=== PATIENT | male | born 1990 | race Caucasian/White ===

== ENCOUNTER 2017-03-28 22:46 | Emergency (ER) | payer OTHER ==
[2017-03-29] MEDS ORDERED: Ibuprofen TAB* 800 MG PO ONE (01:42)
[2017-03-29 02:00] LABS: Urine Appearance Clear; Urine Blood Negative (Negative); Urine Color Yellow; Urine Ketones Negative (Negative); Urine Protein Negative (Negative); Urine Specific Gravity 1.024 (1.010-1.030); Urine Urobilinogen Negative (Negative)
--- NOTE | 2017-03-29 02:18 | ED ---
Jailyn Mcclellan Gabriel, scribed for Madelyn Anaya MD on 03/29/17 at 0137 . GI/ HPI - HPI Summary HPI Summary: This patient is a 27 year old M presenting to [facility] with a chief complaint of left testicular pain that began 24 hours ago that has increased in the last 2 hours. The patient rates the pain 5/10 in severity. Patient denies injury. - History of Current Complaint Chief Complaint: EDUrogenitalProblems Time Seen by Provider: 03/29/17 01:30 Stated Complaint: TESTICULAR PAIN Hx Obtained From: Patient Onset/Duration: Started Days Ago - 1, Still Present Timing: Constant Severity: Moderate Current Severity: Moderate Pain Intensity: 5 Associated Signs and Symptoms: Positive: Negative - trauma - Allergy/Home Medications Allergies/Adverse Reactions: Allergies Allergy/AdvReac Type Severity Reaction Status Date / Time No Known Allergies Allergy Verified 03/28/17 23:02 PMH/Surg Hx/FS Hx/Imm Hx Previously Healthy: Yes Endocrine/Hematology History: Denies: Hx Anticoagulant Therapy, Hx Blood Disorders, Hx Blood Transfusions Cardiovascular History: Denies: Hx Aneurysm, Hx Angina, Hx Atrial Fibrillation Respiratory History: Denies: Hx Chronic Bronchitis, Hx Chronic Obstructive Pulmonary Disease (COPD ) GI History: Denies: Hx Cirrhosis, Hx Crohn's Disease, Hx Diverticulosis History: Denies: Hx Acute Renal Failure, Hx Benign Prostatic Hyperplasia Infectious Disease History: No Infectious Disease History: Denies: Traveled Outside the [place] in Last 30 Days - Family History Known Family History: Negative: Renal Disease, Respiratory Disease, Seizure Disorder - Social History Alcohol Use: Occasionally Hx Substance Use: No Substance Use Type: Reports: None Hx Tobacco Use: No Smoking Status (MU): Never Smoked Tobacco Review of Systems Constitutional: Negative - trauma Negative: Fever Positive: other - testicular pain All Other Systems Reviewed And Are Negative: Yes Physical Exam - Summary Physical Exam Summary: VITAL SIGNS: Reviewed. GENERAL: Patient is a well-developed and nourished malewho is lying comfortable in the stretcher. Patient is not in any acute respiratory distress. HEAD AND FACE: No signs of trauma. No ecchymosis, hematomas or skull depressions. No sinus tenderness. EYES: PERRLA, EOMI x 2, No injected conjunctiva, no nystagmus. EARS: Hearing grossly intact. Ear canals and tympanic membranes are within normal limits. MOUTH: Oropharynx within normal limits. NECK: Supple, trachea is midline, no adenopathy, no JVD, no carotid bruit, no c- spine tenderness, neck with full ROM. CHEST: Symmetric, no tenderness at palpation LUNGS: Clear to auscultation bilaterally. No wheezing or crackles. CVS: Regular rate and rhythm, S1 and S2 present, no murmurs or gallops appreciated. ABDOMEN: Soft, non-tender. No signs of distention. No rebound no guarding, and no masses palpated. Bowel sounds are normal. EXTREMITIES: FROM in all major joints, no edema, no cyanosis or clubbing. NEURO: Alert and oriented x 3. No acute neurological deficits. Speech is normal and follows commands. SKIN: Dry and warm : Mild tenderness in left testicle, no swelling, cremaster relax normal on both sides Triage Information Reviewed: Yes Vital Signs On Initial Exam: Initial Vitals Temp Pulse Resp BP Pulse Ox 98.8 F 91 16 144/100 98 03/28/17 22:55 03/28/17 22:55 03/28/17 22:55 03/28/17 22:55 03/28/17 22:55 Vital Signs Reviewed: Yes Diagnostics - Vital Signs Vital Signs Temp Pulse Resp BP Pulse Ox 03/29/17 01:15 98.3 F 72 16 120/77 98 03/28/17 22:55 98.8 F 91 16 144/100 98 - Laboratory Lab Statement: Any lab studies that have been ordered have been reviewed, and results considered in the medical decision making process. - Additional Comments Diagnostic Additional Comments: US testicular reveals no acute process. ED physician has reviewed this report. GIGU Course/Dx - Course Assessment/Plan: This patient is a 27 year old M presenting to [facility] with a chief complaint of left testicular pain that began 24 hours ago that has increased in the last 2 hours. The patient rates the pain 5/10 in severity. Patient denies injury. US testicular reveals no acute process. Test results with no significant abnormalities. UA obtained. In the ED course the patient was given motrin. Patient will be discharged and follow up from PCP. The patient is agreeable with this plan. - Diagnoses Provider Diagnoses: Testicular pain, left Discharge - Discharge Plan Condition: Stable Disposition: HOME Prescriptions: Ibuprofen TAB* [Motrin TAB* 800 MG] 800 mg PO Q6H PRN #30 tab PRN Reason: Pain Patient Education Materials: Testicle Pain (ED) Referrals: No Primary Care Phys,NOPCP [Primary Care Provider] - [facility] [place] [facility] REFERRAL [Outside] Additional Instructions: RETURN TO EMERGENCY DEPARTMENT FOR ANY NEW OR WORSENING SYMPTOMS The documentation as recorded by the Jailyn wang Gabriel accurately reflects the service I personally performed and the decisions made by me, Madelyn Anaya MD.
[2017-03-29 02:37] VITALS: BP 124/73
--- NOTE | 2017-03-29 07:50 | RAD ---
INDICATION: Left testicular pain. COMPARISON: There are no prior studies available for comparison. TECHNIQUE: Multiple real-time images of the testicles were obtained including color Doppler images and Doppler tracings. FINDINGS: The testicles are normal in size, shape and echogenicity. The right testicle measured 4.5 x 2.1 x 2.9 cm and the left testicle measured 4.1 x 2.0 x 3.0 cm. No intratesticular mass is seen. There is symmetric vascular flow within both testicles. The epididymides appear to be within normal limits. IMPRESSION: NEGATIVE EXAM.
== END 2017-03-29 02:36 | disposition home or self-care (01) ==
LOC: ED 22:46
DX: N50.812 Left testicular pain (principal)
CPT/HCPCS: 76870; 81003; 99282; A9270-GY